=== PATIENT | female | born 1980 | race Caucasian/White ===

== ENCOUNTER 2017-04-15 08:46 | Inpatient (IN) | payer OTHER ==
[~2017-04-15] VITALS: Ht 165.1 cm; Wt 111.1 kg
[2017-04-15] VITALS (38 sets, daily range): BP systolic 92–181; BP diastolic 46–90
[2017-04-15 10:10] LABS: POINT-OF-CARE METER ID UU13113801
[2017-04-15 10:17] LABS: HEMATOCRIT 33.5 % (36.0-46.0); MCH 24.4 PG (29.0-34.0); MCHC 30.7 G/DL (30.0-36.0); MCV 79.4 FL (83-99); MEAN PLAT.VOLUME 9.8 uM^3 (9.5-12.4); NRBC (%) 0.2 /100 WBC (0-0); PLATELET COUNT 291 K/uL (156-360); RBC DIS.WIDTH-CV 17.9 % (11.8-14.6); RBC DIS.WIDTH-SD 50.6 % (39-53); RED BLOOD COUNT 4.22 M/uL (3.80-5.20); WHITE BLOOD COUNT 10.3 K/uL (4.1-10.2)
[2017-04-15 10:23] LABS: PROTHROMBIN TIME 11.1 SEC (10.2-12.9)
[2017-04-15 10:25] LABS: PTT 23.8 SEC (25-37)
[2017-04-15 10:34] LABS: FIBRINOGEN 505 mg/dL (150-450)
[2017-04-15 10:40] LABS: ALKALINE PHOSPHATASE 86 IU/L (3-129); ANION GAP 9 MEQ/L (2-14); CHLORIDE 105 MEQ/L (99-109); GFR ESTIMATE (CALCULATED) > 59 mL/min/; GLUCOSE 126 mg/dL (70-99); LACTATE DEHYDROGENASE 187 IU/L (20-246); POTASSIUM 4.4 MEQ/L (3.7-5.4); SAMPLE HEMOLYSIS CHECK 0; SAMPLE ICTERIC CHECK 0; SAMPLE LIPEMIA CHECK 0; SODIUM 137 MEQ/L (136-147); TOTAL BILIRUBIN 0.4 MG/DL (0.0-1.0); UREA NITROGEN (BUN) 10 mg/dL (9-23); URIC ACID 4.8 mg/dL (3.1-9.2)
[2017-04-15 10:58] LABS: Estimated Average Glucose 114 mg/dL (70-123); HEMOGLOBIN A1c (GLYCOHEMOGLOB) 5.6 % HGB (Below 5.7)
[2017-04-15 11:17] LABS: ABS NEUTROPHIL COUNT 8.1; ANISOCYTOSIS 1+; ATYPICAL LYMPHOCYTE 0.9 %; BAND NEUTROPHILS 2.6 % (0-8.0); BASOPHILS 1.7 %; EOSINOPHIL ABS CT 0.4; EOSINOPHILS 3.5 % (0-5.0); INSTRUMENT ABS NEUTROPHIL CT 7.4 K/uL; MICROCYTOSIS 1+; MYELOCYTES 2.6 %; PLAT.SUFFICIENCY ADEQUATE; POLYCHROMASIA 1+; SEG.NEUTROPHILS 76.5 % (46.0-76.0)
[2017-04-15 12:01] LABS: POINT-OF-CARE METER ID UU13113801
[2017-04-15 14:15] LABS: UR CREATININE CONCENTRATION 92.5 MG/DL
[2017-04-15] MEDS ORDERED: ZOLOFT50 MG PO (16:00)
[2017-04-15] MEDS ORDERED: ATARAX,VISTARIL50 MG PO (16:01)
[2017-04-15] MEDS ORDERED: FLINTSTONES M100 MCG PO (16:02)
[2017-04-15] MEDS ORDERED: LO-DOSE ASPIRIN81 M1 PO (16:02)
[2017-04-15] MEDS ORDERED: GLYBURIDE5 MG PO (16:03)
[2017-04-15] MEDS ORDERED: NOVOLIN N100 UNITS/ SC ×2 (16:04→16:05)
[2017-04-15 16:26] LABS: AMPHETAMINE NEGATIVE (500 ng/mL); BARBITURATES NEGATIVE (200 ng/mL); BENZODIAZEPINES NEGATIVE (150 ng/mL); COCAINE NEGATIVE (150 ng/mL); INTERNAL CONTROLS VALID? YES; METHADONE NEGATIVE (200 ng/mL); METHAMPHETAMINE NEGATIVE (500 ng/mL); OPIATES (MORPHINE) NEGATIVE (100 ng/mL); OXYCODONE NEGATIVE (100 ng/mL); PHENCYCLIDINE NEGATIVE (25 ng/mL); PROPOXYPHENE NEGATIVE (300 ng/mL); THC CANNABINOIDS NEGATIVE (50 ng/mL); TRICYCLIC ANTIDEPRESSANTS NEGATIVE (300 ng/mL)
[2017-04-15 17:02] LABS: POINT-OF-CARE METER ID UU13113801
[2017-04-15 22:27] LABS: POINT-OF-CARE METER ID UU13113801
[2017-04-16] VITALS (22 sets, daily range): BP systolic 107–140; BP diastolic 53–72
[2017-04-16 06:32] LABS: POINT-OF-CARE METER ID UU13113801
[2017-04-17 07:36] LABS: HEMATOCRIT 25.8 % (36.0-46.0); MCHC 30.6 G/DL (30.0-36.0); MCV 81.6 FL (83-99); MEAN PLAT.VOLUME 9.7 uM^3 (9.5-12.4); NRBC (%) 0.2 /100 WBC (0-0); PLATELET COUNT 205 K/uL (156-360); RBC DIS.WIDTH-CV 18.4 % (11.8-14.6); RBC DIS.WIDTH-SD 53.5 % (39-53); WHITE BLOOD COUNT 9.6 K/uL (4.1-10.2)
[2017-04-17 07:37] LABS: RED BLOOD COUNT 3.16 M/uL (3.80-5.20)
[2017-04-17 07:49] VITALS: BP 133/58
[2017-04-17 07:53] LABS: POINT-OF-CARE METER ID UU13113801
[2017-04-17 07:57] LABS: ABS NEUTROPHIL COUNT 7.5; ANISOCYTOSIS 1+; BAND NEUTROPHILS 0.9 % (0-8.0); EOSINOPHIL ABS CT 0.2; EOSINOPHILS 1.7 % (0-5.0); INSTRUMENT ABS NEUTROPHIL CT 6.3 K/uL; METAMYELOCYTES 0.9 %; MICROCYTOSIS 1+; MYELOCYTES 4.3 %; PLAT.SUFFICIENCY ADEQUATE; SEG.NEUTROPHILS 77.4 % (46.0-76.0); SMUDGE CELLS 6.1
[2017-04-17 15:07] VITALS: BP 146/66
[2017-04-18 10:17] VITALS: BP 140/71
[2017-04-18] MEDS ORDERED: ENDOCET 5-3251 EACH PO (10:20)
[2017-04-18] MEDS ORDERED: IBUPROFEN800 MG PO (10:22)
== END 2017-04-18 12:48 | disposition home or self-care (01) | DRG 767 ==
LOC: LDRP-OP 08:46 → 2WEST 08:47
PROVIDERS: Advanced Practice Midwife; Obstetrics & Gynecology
PROC: 3E0R3CZ (ICD-10-PCS; principal; 2017-04-15)
PROC: 00HU33Z Insertion of Infusion Device into Spinal Canal, Percutaneous Approach (ICD-10-PCS; principal; 2017-04-15)
PROC: 10D17ZZ Extraction of Products of Conception, Retained, Via Natural or Artificial Opening (ICD-10-PCS; 2017-04-16)
PROC: 0HQ9XZZ Repair Perineum Skin, External Approach (ICD-10-PCS; 2017-04-16)
PROC: 10E0XZZ Delivery of Products of Conception, External Approach (ICD-10-PCS; 2017-04-16)
PROC: 3E0P7GC Introduction of Other Therapeutic Substance into Female Reproductive, Via Natural or Artificial Opening (ICD-10-PCS; 2017-04-16)
DX: O36.4XX0 Maternal care for intrauterine death, not applicable or unspecified (principal); O60.12X0 Preterm labor second trimester with preterm delivery second trimester, not applicable or unspecified; O70.0 First degree perineal laceration during delivery; O73.0 Retained placenta without hemorrhage; O24.424 Gestational diabetes mellitus in childbirth, insulin controlled; O99.02 Anemia complicating childbirth; D62 Acute posthemorrhagic anemia; Z37.1 Single stillbirth; O99.214 Obesity complicating childbirth; E66.9 Obesity, unspecified; Z68.30 Body mass index [BMI] 30.0-30.9, adult; O69.2XX0 Labor and delivery complicated by other cord entanglement, with compression, not applicable or unspecified; O99.62 Diseases of the digestive system complicating childbirth; K21.9 Gastro-esophageal reflux disease without esophagitis; Z3A.26 26 weeks gestation of pregnancy; R03.0 Elevated blood-pressure reading, without diagnosis of hypertension; Z79.82 Long term (current) use of aspirin
CPT/HCPCS: 80053; 82570; 82948; 83036; 83615; 84156; 84443; 84550; 85025; 85384; 85460; 85610; 85730; 88307; C1755; G0378; J0595; J1050; J1815; J2795; J3010; J7120; Q0177

== ENCOUNTER 2017-04-22 22:54 | Emergency (ER) | payer OTHER ==
[~2017-04-22] VITALS: Ht 167.6 cm; Wt 109.0 kg
[~2017-04-22 22:54] MED LIST: ATARAX,VISTARIL50 MG PO; ENDOCET 5-3251 EACH PO; FLINTSTONES M100 MCG PO; GLYBURIDE5 MG PO; IBUPROFEN800 MG PO; LO-DOSE ASPIRIN81 M1 PO; NOVOLIN N100 UNITS/ SC; ZOLOFT50 MG PO
[2017-04-23 00:04] LABS: HEMATOCRIT 27.7 % (36.0-46.0); MCH 24.6 PG (29.0-34.0); MCHC 30.3 G/DL (30.0-36.0); NRBC (%) 0.4 /100 WBC (0-0); PLATELET COUNT 276 K/uL (156-360); RBC DIS.WIDTH-CV 18.5 % (11.8-14.6); RBC DIS.WIDTH-SD 53.9 % (39-53); RED BLOOD COUNT 3.42 M/uL (3.80-5.20); WHITE BLOOD COUNT 7.8 K/uL (4.1-10.2)
[2017-04-23 00:13] LABS: CHLORIDE 108 mEq/L (99-109); POTASSIUM 3.9 mEq/L (3.7-5.4); SODIUM 139 mEq/L (136-147)
[2017-04-23 00:15] LABS: GLUCOSE 115 mg/dL (70-99)
[2017-04-23 00:16] LABS: ANION GAP 7 MEQ/L (2-14)
[2017-04-23 00:17] LABS: TOTAL BILIRUBIN 0.4 mg/dL (0.0-1.0)
[2017-04-23 00:19] LABS: ALKALINE PHOSPHATASE 85 IU/L (3-129); GFR ESTIMATE (CALCULATED) > 59 mL/min/
[2017-04-23 00:20] LABS: UREA NITROGEN (BUN) 10 mg/dL (9-23)
[2017-04-23 00:23] LABS: ADD MIUA? YES; BILIRUBIN NEGATIVE; BLOOD LARGE; COLOR YELLOW ((YELLOW)); GLUCOSE (STRIP) NEGATIVE; KETONES NEGATIVE; LEUKOCYTES LARGE; NITRITE NEGATIVE; PROTEIN (STRIP) 100; SPECIFIC GRAVITY 1.016 (1.000-1.030); UROBILINOGEN 0.2 MG/DL (0.2-1.0)
[2017-04-23 00:28] LABS: QUANTITATIVE HCG 12.1 MIU/ML
[2017-04-23 00:37] LABS: RED BLOOD CELLS TNTC /HPF (0-5); UCUL ADDED? YES; WHITE BLOOD CELLS TNTC /HPF (0-5)
[2017-04-23 03:48] VITALS: BP 131/75
== END 2017-04-23 03:49 | disposition home or self-care (01) ==
LOC: RME 22:54 → EME 22:54 → RME 04-23 03:49
PROVIDERS: Physician Assistant Medical
DX: O86.12 Endometritis following delivery (principal); O86.20 Urinary tract infection following delivery, unspecified; Z87.891 Personal history of nicotine dependence
CPT/HCPCS: 80053; 81003; 84702; 85027; 87077; 87086; 87186; 99281; 99285; J1580; J7050